=== PATIENT | male | born 1985 | race Two or more races ===

== ENCOUNTER 2019-08-31 00:24 | Emergency (ER) | payer SELFPAY ==
[~2019-08-31] VITALS: Ht 182.9 cm; Wt 93.2 kg
[2019-08-31 01:17] LABS: BASOPHIL % 0.4 % (0-2); PLATELET COUNT 178 x10^3mcL (130-400); RED CELL DISTRIBUTION WIDTH 13.1 % (11.5-14.5)
[2019-08-31 01:24] LABS: CALCIUM 8.4 mg/dL (8.5-10.1); CARBON DIOXIDE 29.5 mmol/L (21-32); CHLORIDE SERUM 100 mmol/L (98-107); CREATININE SERUM 0.9 mg/dL (0.7-1.3); GFR1 > 60 mL/min; GLUCOSE SERUM 102 mg/dL (74-106); POTASSIUM SERUM 4.1 mmol/L (3.5-5.1); SODIUM SERUM 141 mmol/L (136-145)
[2019-08-31 01:28] LABS: ALBUMIN 4.1 g/dL (3.4-5.0); ALKALINE PHOSPHATASE 122 U/L (46-116); ALT/SGPT 79 U/L (16-63); AST/SGOT 62 U/L (15-37); TOTAL PROTEIN, SERUM 8.1 g/dL (6.4-8.2)
[2019-08-31 02:26] VITALS: BP 123/78
[2019-08-31 02:35] LABS: AMPHETAMINE QUAL UR NONE DETECTED (See below)
== END 2019-08-31 03:03 | disposition home or self-care (01) ==
LOC: ED 00:24
PROVIDERS: Emergency Medicine
DX: R20.2 Paresthesia of skin (principal); F41.9 Anxiety disorder, unspecified
CPT/HCPCS: J7030